=== PATIENT | male | born 1990 | race Caucasian/White ===

== ENCOUNTER → 2023-04-18 13:55 | Outpatient (CLI) | payer BC, SELFPAY ==
[2023-04-18 18:29] LABS: Basophils % 0.2 % (0.1-2.0); Eosinophils # 0.1 K/mm3 (0.0-0.4); Hematocrit 49.7 % (42.0-52.0); Hemoglobin 16.8 g/dL (14.1-18.0); Lymphocytes # 1.4 K/mm3 (0.7-4.5); Lymphocytes % 19.7 % (10-50); Mean Corpuscular HGB Conc 33.8 g/dL (31.8-35.4); Mean Corpuscular Hemoglobin 29.5 pg (27.0-31.2); Mean Corpuscular Volume 87.3 fl (80-94); Mean Platelet Volume 8.3 fl (7.4-10.4); Monocytes # 0.5 K/mm3 (0.1-1.0); Monocytes % 7.1 % (1.7-9.3); Neutrophils # 5.1 K/mm3 (1.8-7.8); Neutrophils % 71.1 % (37.0-80.0); Platelet Count 199 K/mm3 (142-424); Red Blood Count 5.69 M/mm3 (4.60-6.20); Red Cell Distribution Width 13.1 % (11.5-17.5); White Blood Count 7.2 K/mm3 (4.8-10.8)
[2023-04-18 18:57] LABS: Alanine Aminotransferase 31 U/L (12-78); Albumin Level 4.6 g/dl (3.5-5.0); Albumin/Globulin Ratio 1.5 (1.1-1.8); Alkaline Phosphatase 73 U/L (38-126); Anion Gap 12.3 mEq/L (5-15); Aspartate Amino Transferase 28 U/L (17-59); Blood Urea Nitrogen 13 mg/dl (9-20); Calcium 9.6 mg/dl (8.4-10.2); Carbon Dioxide 27 mmol/L (22.0-30.0); Chloride 106 mmol/L (98-107); Chol/HDL Ratio 7.4 (1-3.5); Cholesterol 177 mg/dl (140-200); Estimated Glomerular Filt Rate 98 ml/min (>60); GFR (African American) 119 ML/MIN (>60); Globulin 3.1 g/dL (1.3-3.2); Glucose 99 mg/dl (74-100); HDL Cholesterol 24 mg/dl (40-60); Potassium 4.3 mmoL/L (3.5-5.1); Sodium 141 mmol/L (136-145); Total Protein,Serum 7.7 g/dl (6.3-8.2); Triglycerides 153 mg/dl (30-150); VLDL Cholesterol 31 mg/dL (0-40)
[2023-04-18 19:08] LABS: Direct LDL Cholesterol 124.98 mg/dL (100-129)
[2023-04-18 19:11] LABS: 25-OH Vitamin D, Total 22.9 ng/mL (30-100)
[2023-04-18 19:28] LABS: Thyroid Stimulating Hormone 1.38 uIU/mL (0.465-4.68)
== END ==
PROVIDERS: PCP Nurse Practitioner Family; Visit Provider Nurse Practitioner Family
DX: E66.9 Obesity, unspecified (principal); Z68.41 Body mass index [BMI] 40.0-44.9, adult; E55.9 Vitamin D deficiency, unspecified
CPT/HCPCS: 80053; 80061; 82306; 84443; 85025

== ENCOUNTER → 2023-05-03 10:31 | Outpatient (CLI) | payer BC, SELFPAY | PROVIDERS: PCP Nurse Practitioner Family; Visit Provider Nurse Practitioner Family | DX: G47.33 Obstructive sleep apnea (adult) (pediatric) (principal); R06.83 Snoring | CPT/HCPCS: G0399 ==

== ENCOUNTER 2023-12-05 21:52 | Outpatient (CLI) | payer BC, SELFPAY ==
[2023-12-05 17:57] LABS: Coronavirus 19, PCR Not Detected (NotDetected); Influenza A, PCR Not Detected (NotDetected); Influenza B, PCR Not Detected (NotDetected)
== END 2023-12-05 23:59 ==
LOC: LAB.DROPOF 21:53
PROVIDERS: PCP Family Medicine; Visit Provider Family Medicine
DX: R55 Syncope and collapse (principal); F41.9 Anxiety disorder, unspecified; F41.0 Panic disorder [episodic paroxysmal anxiety]
CPT/HCPCS: 87636

== ENCOUNTER 2024-09-28 03:46 | Emergency (ER) | payer BC, SELFPAY ==
[2024-09-28 03:46] VITALS: BP 157/110; PULSE 84; RESP 20; TEMP 36.9; O2SAT 97; BMI 41.0
--- NOTE | 2024-09-28 03:56 | XR_ITS ---
PROCEDURE INFORMATION: Exam: XR Chest Exam date and time: 09/28/2024 4:15 AM Age: 33 years old Clinical indication: Pain; Left-sided; Additional info: L chest discomfort TECHNIQUE: Imaging protocol: Radiologic exam of the chest. Views: 2 views. COMPARISON: No relevant prior studies available. FINDINGS: Lungs: Unremarkable. No consolidation. Pleural spaces: Unremarkable. No pleural effusion. No pneumothorax. Heart/Mediastinum: Unremarkable. No cardiomegaly. Bones/joints: Unremarkable. IMPRESSION: No acute findings.
[2024-09-28 04:04] LABS: Basophils % 0.5 % (0.1-2.0); Eosinophils # 0.2 K/mm3 (0.0-0.4); Hematocrit 48.5 % (42.0-52.0); Lymphocytes # 1.6 K/mm3 (0.7-4.5); Lymphocytes % 20.3 % (10-50); Mean Corpuscular HGB Conc 35.1 g/dL (31.8-35.4); Mean Corpuscular Hemoglobin 29.2 pg (27.0-31.2); Mean Corpuscular Volume 83.3 fl (80-94); Mean Platelet Volume 9.9 fl (7.4-10.4); Monocytes # 0.5 K/mm3 (0.1-1.0); Monocytes % 6.2 % (1.7-9.3); Neutrophils # 5.6 K/mm3 (1.8-7.8); Neutrophils % 70.7 % (37.0-80.0); Platelet Count 226 K/mm3 (142-424); Red Blood Count 5.82 M/mm3 (4.60-6.20); Red Cell Distribution Width 11.9 % (11.5-17.5); White Blood Count 7.9 K/mm3 (4.8-10.8)
--- NOTE | 2024-09-28 04:09 | ECG_ITS ---
APPROVED REPORT Exam: Resting ECG HR:72 bpm ECG Measurements Heart Rate 72 AXES RI 146 P 24 QRSd 85 QRS 3 QT 377 T 29 QTc 401 Conclusion SINUS RHYTHM NORMAL ECG Electronically signed by : HAY VERDUZCO, 09/28/2024 07:41:35
[2024-09-28] MEDS: ONDANSETRON 4MG/2ML VIAL 4 MG IV (04:11)
[2024-09-28] MEDS: ASPIRIN 81MG CHEWABLE TABLET 324 MG PO (04:11)
[2024-09-28 04:12] LABS: Chloride 103 mmol/L (98-107)
[2024-09-28 04:13] LABS: Albumin Level 4.6 g/dl (3.5-5.0); Potassium 4.4 mmoL/L (3.5-5.1); Sodium 142 mmol/L (136-145)
[2024-09-28 04:16] LABS: Alanine Aminotransferase 37 U/L (12-78); Albumin/Globulin Ratio 1.5 (1.1-1.8); Alkaline Phosphatase 56 U/L (38-126); Anion Gap 15.4 mEq/L (5-15); Aspartate Amino Transferase 36 U/L (17-59); Bilirubin,Total 0.5 mg/dl (0.2-1.3); Blood Urea Nitrogen 16 mg/dl (9-20); Carbon Dioxide 28 mmol/L (22.0-30.0); Creatinine Clearance Estimated 204 mL/min (50-200); Estimated Glomerular Filt Rate 98 ml/min (>60); GFR (African American) 118 ML/MIN (>60); Total Protein,Serum 7.6 g/dl (6.3-8.2)
[2024-09-28 04:17] LABS: Calcium 9.5 mg/dl (8.4-10.2); Glucose 96 mg/dl (74-100)
[2024-09-28 04:31] LABS: Troponin I < 0.01 ng/ml (0.00-0.034)
[2024-09-28 04:57] VITALS: PULSE 75
[2024-09-28 05:12] LABS: HIV Combo NEGATIVE (Negative)
[2024-09-28 05:20] VITALS: BP 139/103; PULSE 82; RESP 18; TEMP 36.6; O2SAT 95
--- NOTE | 2024-09-28 05:22 | HMH.EDCP ---
Discharge Plan Disposition Patient Disposition: Home, Self-Care Condition: Good Prescriptions Prescriptions: New amoxicillin-pot clavulanate 875-125 mg tablet 1 tab PO BID Qty: 14 0RF ondansetron 4 mg tablet,disintegrating 4 mg PO Q6H PRN (Reason: nausea and vomiting) Qty: 7 0RF No Action melatonin 5 mg capsule See Rx Instructions PO .every night Rx Instructions: 5 mg orally EVERY NIGHT; Referrals Follow up/Referrals: Caro Landa APRN [Primary Care Provider] - See instructions Activity Restrictions/Add. Instructions Additional Instructions/Restrictions: You were evaluated in the ER and are appropriate for discharge at this time. Take the prescribed antibiotics as directed, do not skip doses, do not stop taking them early. Take the prescribed ondansetron if needed for nausea. Drink plenty fluids. Follow-up with a dentist for your dental pain, follow-up with your primary care doctor for reevaluation. Return to the ER with new, worsening, or otherwise concerning symptoms. Follow-up with the dental clinic Saturday through Saturday 7:30 AM to 10:30 AM They will be open after October 02 [place], [place] Clinical Impressions Clinical Impression: Chest pain, Nausea, Pain, dental Print Language Print Language: Icelandic Discharge ED Provider: Jey Alexandre General Chief Complaint: Chest Pain Stated Complaint: tooth pain, numbness in left arm, vomiting Time Seen by Provider: 09/28/24 03:47 Mode of Arrival: Ambulatory Source of Information: Patient Limitations: No Limitations Description of Symptoms (Recalled from ER Triage Doc. by RN): PT C/O KARIE DENTAL PAIN AND L SIDED CHEST DISCOMFORT STARTING YESTERDAY AROUND 3 AM PER PT. REPORTS PAIN RADIATES DOWN L ARM, + NV X1 YESTERDAY. DENIES FEVER/SOA History of Present Illness HPI narrative: 33-year-old male with a history of anxiety presents to the ER with complaints of left upper dental pain for multiple days unable to get into a dentist, left-sided chest discomfort that he does not describe as pain or pressure, this discomfort reportedly also goes down the left arm and he describes it as the sensation of the snow static on TV . He does not have any personal cardiac history. He states his chest/arm symptoms started yesterday around 3 AM, Over 24 hours ago. He does report 1 episode of nonbloody, nonbilious emesis yesterday and has mild nausea at this time but is not having any abdominal pain and has been tolerating oral intake. He denies fever, difficulty breathing, weakness, dizziness, headache, or other associated symptoms. Related Data Home Medications ?Medication ?Instructions ?Recorded ?Confirmed melatonin 5 mg capsule See Rx Instructions PO .every night 05/21/24 06/09/24 Previous Rx's ?Medication ?Instructions ?Recorded amoxicillin 875 mg-potassium 1 tab PO BID #14 tabs 09/28/24 clavulanate 125 mg tablet ondansetron 4 mg disintegrating 4 mg PO Q6H PRN nausea and 09/28/24 tablet vomiting #7 tabs Allergies Allergy/AdvReac Type Severity Reaction Status Date / Time No Known Allergies Allergy Verified 06/09/24 12:43 [facility] Disclaimer: The information contained in this section may have been updated after the patient was seen, as this information can be updated by other users. Medical History Anxiety VINCENT (obstructive sleep apnea) Moderate to severe VINCENT with hypoxemia, new CPAP set up Asthma Surgical History No significant past surgical history Family History Other Cancer Diabetes Hypertension Stroke Thyroid disorder Social History Smoking Status: Never smoker alcohol intake: current alcohol intake frequency: other substance use type: denies use current occupational status: employed Travel in the last 8 weeks: None household members: friend(s) housing: house lives independently: Yes marital status: single education level: high school service: No Have you lived/traveled outside US in past 30 days?: No Contact w/someone who lives/traveled outside US past 30 days?: No Exposure to someone with infectious disease in past 14 days?: No Do you have a fever (greater than 100.4 F or 38 C)?: No Have you tested positive for COVID-19: No Exposed to someone with COVID-19 in past 14 days?: No Do you have a sore throat?: No Do you have a cough?: No Do you have any weakness?: No Do you have any diarrhea?: No Are you experiencing any unusual bleeding?: No Do you have any muscle aches/pain?: No Do you have any abdominal pain?: No Are you experiencing loss of taste or smell?: No Other Medical History Have you received the Pneumonia Vaccine: No ROS Obtained: Yes Systems reviewed as appropriate & no additional complaints except as documented Per HPI Physical Exam General General appearance: alert and in no apparent distress Head Head exam: atraumatic and normocephalic Eye Eye exam: Present PERRL and EOMI ENT ENT exam: Present mucous membranes moist Expanded ENT Exam Teeth exam: Present fractured tooth # (16), dental tenderness # (16) and other (Very small fracture of tooth #16, mild dental tenderness of the root area of that tooth but there is no fluctuance or swelling, mild gingival erythema present) Neck Neck exam: Present normal inspection and full ROM Chest Chest inspection: Present symmetric chest wall rise; Absent tenderness Respiratory Respiratory exam: Present normal lung sounds bilaterally; Absent respiratory distress, wheezes or stridor Cardiovascular Cardiovascular exam: Present regular rate and normal rhythm Abdominal Exam Abdominal exam: Present soft; Absent distention, tenderness, guarding or rebound Extremities Exam Extremities exam: Present full ROM; Absent edema Neurological Exam Neurological exam: Present alert and oriented X3; Absent motor sensory deficit Psychiatric Psychiatric exam: Present normal affect and normal mood Skin Skin exam: Present warm and dry HEART Score HEART Score HEART Score assessment performed?: Yes History (anamnesis): Slightly suspicious ECG: Normal Age: <45 years Risk factors: 1-2 risk factors Troponin: </= normal limit HEART Score: 1 Critical Care Critical Care Time Critical Care Time: No Medical Decision Making Medical Records Medical records reviewed: Yes I reviewed the patient's medical records. MR Comment: Patient has previously been evaluated with behavioral health for anxiety. Most recently January 2024. He was thought to have attention and concentration deficits. Vaibhav Inquiry Pt receiving controlled substance: No Vital Signs Vital Signs: 09/28/24 03:46 09/28/24 04:57 09/28/24 05:20 Temperature 98.5 F 97.9 F Temperature Source Oral Tympanic Pulse Rate 75 82 Pulse Rate [Apical] 84 Respiratory Rate 20 18 Blood Pressure 139/103 H Blood Pressure [Right Arm] 157/110 H Blood Pressure Mean [Right Arm] 125 02 Sat by Pulse Oximetry 97 Oxygen Delivery Method Room Air Room Air Lab Data Labs: Lab Results 09/28/24 04:00: WBC 7.9, RBC 5.82, Hgb 17.0, Hct 48.5, MCV 83.3, MCH 29.2, MCHC 35.1, RDW 11.9, Plt Count 226, MPV 9.9, Neut % (Auto) 70.7, Lymph % (Auto) 20.3, [place] % (Auto) 6.2, Eos % (Auto) 2.0, Baso % (Auto) 0.5, Neut # (Auto) 5.6, Lymph # (Auto) 1.6, [place] # (Auto) 0.5, Eos # (Auto) 0.2, Baso # (Auto) 0.0, Sodium 142, Potassium 4.4, Chloride 103, Carbon Dioxide 28, Anion Gap 15.4 H, BUN 16, Creatinine 0.90, Estimated Creat Clear 204, Estimated GFR 98, Est GFR ( Amer) 118, Glucose 96, Calcium 9.5, Total Bilirubin 0.5, AST 36, ALT 37, Alkaline Phosphatase 56, Troponin I < 0.01, Total Protein 7.6, Albumin 4.6, Globulin 3.0, Albumin/Globulin Ratio 1.5, HIV Ag/Ab Combo Qual Negative 09/28/24 04:00 09/28/24 04:00 Response Orders (Tests/Meds): ED MEDICATIONS Discontinued Medications Generic Name Dose Route Start Last Admin Trade Name Freq PRN Reason Stop Dose Admin Aspirin 324 mg 09/28/24 03:56 09/28/24 04:11 Aspirin 81mg Chewable Tablet PO 09/28/24 03:57 324 mg ONCE ONE Administration Ondansetron HCl 4 mg 09/28/24 03:57 09/28/24 04:11 Ondansetron 4mg/2ml Vial IV 09/28/24 03:58 4 mg ONCE ONE Administration ORDERS Category Date Time Status XR chest 2V Stat Exams 09/28/24 03:56 Taken Complete Blood Count Auto Diff Stat Lab 09/28/24 04:00 Completed Comprehensive Metabolic Panel Stat Lab 09/28/24 04:00 Completed HIV Combo Routine Lab 09/28/24 04:00 Completed Hep C Ab with Reflex to RNA Stat Lab 09/28/24 04:00 Received Troponin I Q3H Lab 09/28/24 07:00 Ordered Troponin I Stat Lab 09/28/24 04:00 Completed MDM Narrative Medical Decision Narrative: In summary, this 33-year-old male with history of anxiety presents to the emergency department today with left chest discomfort radiating into the left arm as well as dental pain, nausea. On initial evaluation patient is hemodynamically stable, afebrile, GCS 15, no neurologic deficits, cardiopulmonary exam is benign, chest discomfort is not reproducible on exam, he is neurologically intact, abdominal exam benign, dental exam with small fracture of tooth 16 and tenderness of this tooth with mild gingival erythema but no fluctuance or swelling, no findings of abscess. Differential diagnosis includes but is not limited to ACS, esophageal spasm, pneumothorax, viral syndrome, I considered PE but patient is PERC negative, dental fracture, dental infection, dental abscess, I considered Deepali's however patient has maxillary pain not mandibular and no findings of sublingual or submandibular swelling or woodiness. Based on these concerns, I ordered basic serum labs, cardiac workup. His dental pain is controlled at this time and he is not requesting pain medication. ECG personally interpreted demonstrates normal sinus rhythm, rate 72, normal axis, normal FL and QTc, no STEMI, normal ECG. Patient received ondansetron, aspirin for treatment. Labs personally reviewed demonstrate normal CBC, CMP nonactionable, undetectably low troponin, I do not believe serial troponins are indicated at this time given the duration of patient's symptoms. Patient has a nonacute abdomen and nausea symptoms have resolved with ondansetron. I do not believe he requires any abdominal imaging. XR personally interpreted demonstrates no acute intrathoracic process, see radiology read for final interpretation.. On reassessment patient is stable, resting comfortably, asymptomatic, tolerating oral intake. On further discussion he believes his symptoms in the left chest and are more likely related to anxiety. He states he has had panic attacks with similar symptoms in the past. Patient has mild findings of dental infection so I prescribed Augmentin since he will not be able to get into a dentist for multiple days at least with the holidays. I also prescribed ondansetron for outpatient management. I gave him information about the dental clinic. Patient was given instructions on symptomatic management, follow up instructions, and return precautions for the emergency department. Patient indicated understanding and was discharged in stable condition.
[2024-09-29 05:33] LABS: HCV Ab Non Reactive (Non Reactive)
== END 2024-09-28 05:21 | disposition home or self-care (01) ==
PROVIDERS: Emergency Provider Emergency Medicine; PCP Family Medicine
DX: K08.89 Other specified disorders of teeth and supporting structures (principal); R07.9 Chest pain, unspecified; R20.2 Paresthesia of skin; R11.2 Nausea with vomiting, unspecified
CPT/HCPCS: 71046; 80053; 84484; 85025; 86803; 87389; 93005; 96374; 99284; J2405

== ENCOUNTER 2025-01-14 18:28 | Outpatient (CLI) | payer BC, SELFPAY ==
--- NOTE | 2025-01-14 18:35 | XR_ITS ---
PROCEDURE INFORMATION: Exam: XR Right Knee Exam date and time: 01/14/2025 6:26 PM Age: 34 years old Clinical indication: Other: Twisted knee a couple days ago having pain w TECHNIQUE: Imaging protocol: Radiologic exam of the right knee. Views: 3 views. COMPARISON: No relevant prior studies available. FINDINGS: Bones/joints: Osseous alignment is normal. No acute fracture. No significant arthritic changes or joint fluid. Soft tissues: Normal. IMPRESSION: Negative right knee
== END 2025-01-14 23:59 | disposition home or self-care (01) ==
LOC: RAD 18:30
PROVIDERS: Visit Provider Nurse Practitioner
DX: M25.561 Pain in right knee (principal)
CPT/HCPCS: 73562

== ENCOUNTER 2025-05-26 18:09 | Emergency (ER) | payer BC, SELFPAY ==
--- OUTSIDE RECORDS SUMMARY | 2025-05-25 20:00 | XMS_ITS | Encounter Summary ---
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 Role Phone Unavailable Primary Care Provider Unavailabl e Reason for Visit * Reason Comments Care Coordination Encounter Details Date Type Department Care Team (Latest Contact Info) Description 05/25/2025 8:00 PM EDT Clinical Support CARINA Descanso [address] [place] [address] Nadia Gary PA [address] [place] [address] Chest pain, unspecified type (Primary Dx); Pain radiating to left shoulder Social History Tobacco Use Types Packs/Day Years Used Date Smoking Tobacco: Never Smokeless Tobacco: Never Intimate Partner Violence Answer Date R ecorded Insults You Not on file 01/14/2021 Threatens You Not on file 01/14/2021 Screams at You Not on file 01/14/2021 Physically Hurt Not on file 01/14/2021 Intimate Partner Violence Score Not on file 01/14/2021 Depression Answer Date Recorded PHQ Total Score 0 01/18/2025 Stress Answer Date Recorded Stress in your Life Not on file 08/05/2024 Dealing with Stress 3 08/05/2024 Sex and Gender Information Value Date Recorded Sex Assigned at Not on file 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 F/u PCP. To the ER if concerns. documented in this encounter Progress Notes * GABRIELLA Block - 05/25/2025 8:00 PM EDT Mikayla England is a 34 y.o. male. WD ID: [id number] Employer: [employer] Date of Hire: 11/08/23 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 Onset: acute Symptoms: LUQ/epigastic pain, shoulder pain Transported TM back to [place] [address] via ez go without stretcher. Notes: on EMS arrival to scene TM is seated at line side, alert and oriented x4 and bracing left chest/shoulder with right hand. TM agreeable to transport to [place] [address] for further eval. TM denies any cardiac history. 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 TM denies soreness is not caused from work. TM also reports experiencing what he believes is acid reflux, stating that he ate peppered beef jerky and two Dr Peppers before work. TM reports gastric symptoms seemed to improve until his shoulder started hurting more after picking up the part. That is when TM notified GL of symptoms. EKG obtained which showed NSR. Tums provided. Triage nurse: TEDDY RN This was an emergency call with a disruption in patient care and scheduled clinic appointments. History Reviewed: Tobacco Allergies Meds Problems Med Hx Surg Hx See CC above TM is here for Emergency Evaluation after tones dropped for CP and left arm pain. TM states CP started yesterday, worse today. No hx of CAD. No injury or trauma. He states he may have hurt it at the gym and notes doing some martial arts like activity with a stick. He also says he may have done something with lifting a radiator. He does not know if it could be work related. Discussed REBEKAH if he decides to file for WC Claim. TM states he had some bad jerky this morning and that his symptoms might be GI related. He has some GERD. No diaphoresis. +SOA. No palpitation. Not LH/Dizzy. No hx of DM anddeclines FSBS. Nausea w/o emesis and no diarrhea. TM declines ALS/ER for further evaluation. Symptoms improved a bit after tums. TM also notes stress recently; see my last ER note for CP. Review of Systems Constitutional: Negative for diaphoresis. Respiratory: Positive for shortness of breath. Cardiovascular: Positive for chest pain. Gastrointestinal: Positive for nausea. Negative for diarrhea and vomiting. Musculoskeletal: Positive for arthralgias. Neurological: Negative for dizziness and light-headedness. PHQ-9 Total Score: 0 (01/18/2025 6:06 PM) Objective Vitals: 05/25/25 2136 BP: 132/83 Pulse: 78 Temp: 97.9 ??F SpO2: 97% There were no vitals filed for this visit. Physical Exam Vitals and nursing note reviewed. Constitutional: General: He is not in acute distress. Appearance: He is well-developed. He is obese. He is not ill-appearing or diaphoretic. Cardiovascular: Rate and Rhythm: Normal rate and regular rhythm. Pulses: Normal pulses. Heart sounds: Normal heart sounds. Pulmonary: Effort: Pulmonary effort is normal. No respiratory distress. Breath sounds: Normal breath sounds. No wheezing. Chest: Chest wall: Tenderness (mild, not reproducing symptoms) present. Abdominal: General: Bowel sounds are normal. Palpations: Abdomen is soft. Tenderness: There is no abdominal tenderness. Musculoskeletal: General: No swelling. Skin: General: Skin is warm and dry. Capillary Refill: Capillary refill takes less than 2 seconds. Neurological: General: No focal deficit present. Mental Status: He is alert. Cranial Nerves: No cranial nerve deficit. Sensory: No sensory deficit. Motor: No abnormal muscle tone. Psychiatric: Thought Content: Thought content normal. Assessment: ICD-10-CM ICD-9-CM 1. Chest pain, unspecified type R07.9 786.50 ECG 12 lead 2. Pain radiating to left shoulder M25.512 719.41 Orders Placed This Encounter Procedures ECG 12 lead Patient Instructions RTW Regular duty. F/u PCP. To the ER if concerns. documented in this encounter Plan of Treatment Not on file documented as of this encounter Procedures Procedure Name Priority Date/Time Associated Diagnosis Comments ECG 12-LEAD Routine 05/25/2025 9:16 PM EDT Chest pain, unspecified type documented in this encounter Results * ECG 12 lead (05/25/2025 9:16 PM EDT) Impressions Nadia Gary PA - 05/25/2025 9:16 PM EDT NSR, HR 72 Nadia QUIROZ ECG ORDERABLES Final Result documented in this encounter Visit Diagnoses Diagnosis Chest pain, unspecified type- Primary Pain radiating to left shoulder documented in this encounter
[2025-05-26 18:15] VITALS: BP 125/80; PULSE 77; RESP 18; TEMP 36.8; O2SAT 100; BMI 38.5
--- NOTE | 2025-05-26 18:22 | ED_ITS ---
<Statement entered by Lenin Pepper DO - 05/27/25 08:59> I was consulted by the JEREMIAH, and we discussed the complexity of problems being addressed. I approved the treatment and management plan for this patient's care in the emergency department, thus performing a substantive portion of the medical decision making. Lenin Pepper DO Discharge Plan Disposition Patient Disposition: Home, Self-Care Condition: Good Referrals Follow up/Referrals: Caro Landa APRN [Primary Care Provider, Family Practice] - See instructions Activity Restrictions/Add. Instructions Additional Instructions/Restrictions: You were evaluated on an emergency basis. It is very important that you follow- up with your primary care provider and any specialist who we discussed within the next 2 days in order to better assess your health more comprehensively. For example, incidental findings on imaging or laboratory results that were performed today may be discovered, which do not require immediate medical care, but may impact your health in the future. If your symptoms worsen or persist, please return to the emergency department immediately for reassessment. Take all medications as prescribed. In queue for allowing me to participate in your health care, and I hope you feel better soon. Clinical Impressions Clinical Impression: Chest pain due to GERD, without esophagitis Instructions Patient Instructions: DI for Gastroesophageal Reflux Disease (GERD) Print Language Print Language: Monegasque Discharge ED Provider: Lenin Pepper General Adult HPI General Chief complaint: PAIN Stated complaint: Left arm pain,B/P problems,acid reflux Time Seen by Provider: 05/26/25 18:22 Mode of Arrival: Ambulatory Source of Information: Patient Description of Symptoms (Recalled from ER Triage Doc. by RN): patient presents to the ED for left arm pain, epigastric pain, and left sided chest pain. patient mentioned he has also been doing alot of martial arts and could be pulled muscles. lainey stated his place of employement got an EKG which was normal at work last night. History of Present Illness HPI narrative: 34-year-old male presents emergency department with complaints of chest pain, left arm pain, and epigastric pain since last night. He reports that he has a history of GERD. He also states that he recently started doing martial arts and is unsure if this is related to musculoskeletal strain. He denies nausea, vomiting, diarrhea, fevers. Related Data Allergies Allergy/AdvReac Type Severity Reaction Status Date / Time No Known Allergies Allergy Verified 02/01/25 14:56 [facility] Disclaimer: The information contained in this section may have been updated after the patient was seen, as this information can be updated by other users. Medical History Knee pain Anxiety VINCENT (obstructive sleep apnea) Moderate to severe VINCENT with hypoxemia, new CPAP set up Asthma Surgical History No significant past surgical history Family History Other Cancer Diabetes Hypertension Stroke Thyroid disorder Social History Smoking Status: Never smoker alcohol intake: current alcohol intake frequency: other substance use type: denies use current occupational status: employed Travel in the last 8 weeks?: None household members: friend(s) housing: house lives independently: Yes marital status: single education level: high school service: No Have you lived/traveled outside [place] in past 30 days?: No Contact w/someone who lives/traveled outside US past 30 days?: No Exposure to someone with infectious disease in past 14 days?: No Do you have a fever (greater than 100.4 F or 38 C)?: No Have you tested positive for COVID-19?: No Exposed to someone with COVID-19 in past 14 days?: No Do you have a sore throat?: No Do you have a cough?: No Do you have any weakness?: No Do you have any diarrhea?: No Are you experiencing any unusual bleeding?: No Do you have any muscle aches/pain?: No Do you have any abdominal pain?: No Are you experiencing loss of taste or smell?: No Other Medical History Have you received the Pneumonia Vaccine: No ROS Obtained: Yes All systems reviewed & no additional complaints except as documented Cardiovascular Cardiovascular: Reports chest pain Gastrointestinal Gastrointestingal: Reports reflux Musculoskeletal Musculoskeletal: Reports myalgias Physical Exam Narrative Physical exam: General: Awake, aware, in no acute distress HEENT: Normocephalic, no evidence of trauma CV: RRR, no murmurs, rubs, or gallops. 2+ pulses in all extremity, no edema noted Pulm: CTA bilaterally with no rhonchi, rales, wheezes ABD: Nontender, no swelling, guarding, or rebound tenderness Psych, appropriate mood and affect General General appearance: alert Respiratory Respiratory exam: Present normal lung sounds bilaterally Cardiovascular Cardiovascular exam: Present regular rate Neurological Exam Neurological exam: Present alert Medical Decision Making Medical Records Screening: Per USPSTF and CDC recommendations, given the prevalence of disease in our region, it is our hospital?s policy to screen for HIV and viral Hepatitis for all patients aged 18 and over and those with ongoing risk factors. Vaibhav Inquiry Pt receiving controlled substance: No Vital Signs: 05/26/25 18:15 05/26/25 19:00 05/26/25 19:30 Temperature 98.2 F Temperature Source Temporal Artery Scan Pulse Rate 68 73 Pulse Rate [Left Radial] 77 Respiratory Rate 18 14 21 Blood Pressure 113/79 116/76 Blood Pressure [Left Arm] 125/80 Blood Pressure Mean [Left Arm] 95 Blood Pressure Source [Left Arm] Automatic Cuff Blood Pressure Position [Left Arm] Sitting 02 Sat by Pulse Oximetry 100 94 L 93 L Oxygen Delivery Method Room Air Room Air Room Air Lab Data Lab Results 05/26/25 18:28: WBC 5.7, RBC 5.37, Hgb 16.0, Hct 45.5, MCV 84.7, MCH 29.8, MCHC 35.2, RDW 12.1, Plt Count 221, MPV 10.0, Neut % (Auto) 72.1, Lymph % (Auto) 18.4, Haywood % (Auto) 6.7, Eos % (Auto) 2.1, Baso % (Auto) 0.5, Neut # (Auto) 4.1, Lymph # (Auto) 1.1, Haywood # (Auto) 0.4, Eos # (Auto) 0.1, Baso # (Auto) 0.0, Sodium 140, Potassium 4.3, Chloride 107, Carbon Dioxide 27, Anion Gap 10.3, BUN 14, Creatinine 0.80, Estimated Creat Clear 213, Estimated GFR 111, Est GFR ( Amer) 135, Glucose 87, Calcium 9.5, Magnesium 1.8, Total Bilirubin 0.7, AST 26, ALT 25, Alkaline Phosphatase 51, Troponin I < 0.01, Total Protein 6.9, Albumin 4.3, Globulin 2.6, Albumin/Globulin Ratio 1.7, Lipase 99, HIV Ag/Ab Combo Qual Negative 05/26/25 18:28 05/26/25 18:28 Orders (Tests/Meds): ED MEDICATIONS Discontinued Medications Generic Name Dose Route Start Last Admin Trade Name Gigi PRN Reason Stop Dose Admin Belladonna Alkaloids 60 ml 05/26/25 18:44 05/26/25 18:53 Belladonna Alkaloids 60 Ml Ml PO 05/26/25 18:45 60 ml ONCE ONE Administration ORDERS Category Date Time Status Chest XR -- portable [XR chest portable] Stat Exams 05/26/25 18:26 Completed CBC w/Auto Diff [Complete Blood Count Auto Diff] Stat Lab 05/26/25 18:28 Completed CMP [Comprehensive Metabolic Panel] Stat Lab 05/26/25 18:28 Completed HIV Combo Stat Lab 05/26/25 18:28 Completed Hepatitis C Ab Qual. W/ RFX Stat Lab 05/26/25 18:28 Received Lipase Stat Lab 05/26/25 18:28 Completed Magnesium Stat Lab 05/26/25 18:28 Completed Trop I [Troponin I] Stat Lab 05/26/25 18:28 Completed Troponin I Q3H Lab 05/26/25 21:30 Ordered Troponin I Q3H Lab 05/27/25 00:30 Ordered Medical Decision Narrative: Initial impression of presenting illness: 34-year-old male presents the emergency department complaints of chest pain, left arm pain, gastric pain since last night. He reports that he has a history of GERD. He also states that he has started martial arts and unsure if the symptoms are related to musculoskeletal strain. Differential diagnosis includes but is not limited to: ACS, pleurisy, costochondritis, musculoskeletal strain, GERD, gastritis Patient arrives hemodynamically stable, afebrile, without respiratory distress with vital signs interpreted by myself. Initial physical exam unremarkable Initial diagnostic plan: ACS workup, GI cocktail Results from initial plan were reviewed and interpreted by myself, pertinent positives include: Laboratory studies including EKG and chest x-ray were nonactionable. EKG is a normal sinus rhythm with a rate of 71. No ST changes noted. Patient's symptoms have been going on since last night we did not follow-up with a repeat troponin. Interventions in the ED: Patient was given GI cocktail for symptom relief. Patient was made aware of the results and the findings, upon reevaluation patient has remained stable throughout stay, symptoms have improved. Upon reevaluation patient states he is feeling better after receiving a GI cocktail. Eitel signs of states stable and he is resting comfortably in bed with no signs of acute distress. Disposition: Reviewed findings today's workup with patient informed no acute abnormalities were noted. Lysed him that symptoms could be related to musculoskeletal strain as well as GERD. For patient I can give him a prescription for omeprazole to try for couple weeks to see if he notices an improvement in his GERD symptoms. He states he would just pick the medication up [id number]. I recommended that he follow-up with his primary care provider for further management of GERD. Instructed him to return to the emergency department any new or worsening symptoms. Patient made aware of findings and had a detailed discussion with symptomatic care and return precautions, patient voiced understanding. Critical Care Critical Care Time Critical Care Time: No
--- NOTE | 2025-05-26 18:26 | XR_ITS ---
PROCEDURE INFORMATION: Exam: XR Chest Exam date and time: 05/26/2025 6:43 PM Age: 34 years old Clinical indication: Pain; Chest pressure; Additional info: Cp TECHNIQUE: Imaging protocol: Radiologic exam of the chest. Views: 1 view. COMPARISON: CR Chest 09/28/2024 4:15 AM FINDINGS: Airway: The trachea is midline. Lungs: No focal consolidation. Pleural spaces: No significant pleural effusion. No pneumothorax. Heart/Mediastinum: Stable heart size. Bones/joints: Stable bones. Soft tissues: Soft tissues are unremarkable as visualized. IMPRESSION: No acute findings.
--- NOTE | 2025-05-26 18:27 | ECG_ITS ---
APPROVED REPORT Exam: Resting ECG HR:71 bpm ECG Measurements Heart Rate 71 AXES OK 156 P 43 QRSd 82 QRS 72 QT 347 T 18 QTc 369 Conclusion SINUS RHYTHM LOW QRS VOLTAGE IN PRECORDIAL LEADS [QRS DEFLECTION < 1.0 mV IN CHEST LEADS] BORDERLINE ECG UNCONFIRMED REPORT Electronically signed by : JACY TERRAZAS, 05/27/2025 06:56:44
--- OUTSIDE RECORDS SUMMARY | 2025-05-26 18:28 | XMS_ITS | Clinical Summary ---
Author Organization [facility] Address [address] [place] [address] Care Team Providers Care Social Human Services Assistants Name Role Phone Unavailable Primary Care Provider Unavailabl e Social History Tobacco Use Types Packs/Day Years Used Date Smoking Tobacco: Never Assessed Sex and Gender Information Value Date Recorded Sex Assigned at Not on file Legal Sex Male 7:52 PM EDT Gender Identity Not on file Sexual Orientation Not on file Plan of Treatment Not on file
--- OUTSIDE RECORDS SUMMARY | 2025-05-26 18:28 | XMS_ITS | Clinical Summary ---
Author Organization [facility] Address [address] [place] [id number] Phone [email or web address] Care Team Providers Care Vocal Artist Name Role Phone Unavailable Primary Care Provider Unavailabl e Allergies No known active allergies Medications No known medications Active Problems Problem Noted Date Diagnosed Date Return to work evaluation 12/06/2023 Encounters Date Type Department Care Team Description 05/25/2025 8:00 PM EDT Clinical Support [facility] [place] [facility] [address] [place] [address] Nadia Gary PA Chest pain, unspecified type (Primary Dx); Pain radiating to left shoulder from Last 3 Months Social History Tobacco Use Types Packs/Day Years Used Date Smoking Tobacco: Never Smokeless Tobacco: Never Tobacco Cessation:Counseling Given: Not Answered Intimate Partner Violence Answer Date R ecorded [...] on file Legal Sex Male 1:03 PM [employer] WORK[employer] Gender Identity Not on file Sexual Orientation Not on file Last Filed Vital Signs Vital Sign Reading Time Taken Comments Blood Pressure 132/83 05/25/2025 9:36 PM EDT Pulse 78 05/25/2025 9:36 PM EDT Temperature 36.6 C (97.9 F) 05/25/2025 9:36 PM EDT Respiratory Rate 18 02/15/2025 11:36 PM EDT Oxygen Saturation 97% 05/25/2025 9:36 PM EDT Inhaled Oxygen Concentration - - Weight 121 kg (266 lb 3.2 oz) 10/16/2023 8:25 PM EST Height 172.7 cm (5' 8 ) 10/16/2023 8:25 PM EST Body Mass Index 40.48 10/16/2023 8:25 PM EST Plan of Treatment Health Maintenance Due Date Last Done Comments Dental Cleaning/Exam 1991 HIV Screening 1991 Hepatitis C Screening 1991 Asthma Spirometry 1996 Hepatitis B Immunization (2 of 3 - 3-dose series) 08/09/2003 07/12/2003 HPV Immunization (1 - Male 3 -dose series) 2006 Hep B Infection Screening - Triple Screen 2009 Pneumococcal: Ped (0 to 5 Yr s) and At-Risk Member (6 to 64 Yrs) (1 of 2 - PCV) 2010 Tetanus Diphtheria and Pertu ssis Immunization (1 - Tdap) 2010 Annual Preventive Exam 04/06/2023 04/06/2022 Covid-19 Immunization (1 - 2 -25 season) 2024 Influenza Immunization (#1) 2025 HIB Immunization Aged Out No longer e ligible based on patient's age to complete this topic Hepatitis A Immunization Aged Out No longer eligible based on patient's age to complete this topic Polio Immunization Aged Out No longer eligible based on patient's age to complete this topic Varicella Immunization Aged Out No lo nger eligible based on patient's age to complete this topic Procedures Procedure Name Priority Date/Time Associated Diagnosis Comments ECG 12-LEAD Routine 05/25/2025 9:16 PM EDT Chest pain, unspecified type from Last 3 Months Results * ECG 12 lead (05/25/2025 9:16 PM EDT) Nadia Younger PA - 05/25/2025 9:16 PM EDT NSR, HR 72 Nadia QUIROZ ECG ORDERABLES Final Result from Last 3 Months Insurance OPT OUT NO COPAY NB
--- OUTSIDE RECORDS SUMMARY | 2025-05-26 18:28 | XMS_ITS | Encounter Summary ---
Author Organization [facility] Address [address] [id number] Care Team Providers Care Cut Lace Machine Operator Name Role Phone Unavailable Primary Care Provider Unavailabl e Reason for Referral * Consultation (Routine) - Pending Review Specialty Diagnoses / Procedures Referred By Contac t Referred To Contact Psychiatry Diagnoses Attention and concentration deficit Generalized anxiety disorder Raphael Tiwari MD [address] [place] [id number] Phone: tel: fax: Referral ID Status Reason Start Date Expiration Date Visits Requested Visits Authorized [id number] Pending Review Specialty Services Required 03/18/2024 09/17/2025 1 1 Encounter Details Date Type Department Care Team (Latest Contact Info) Description 03/18/2024 Community [facility] [address] [place] [phone] Raphael Tiwari MD [address] [place] [address] Attention and concentration deficit (Primary Dx); Generalized anxiety disorder Social History Tobacco Use Types Packs/Day Years Used Date Smoking Tobacco: Never Assessed Sex and Gender Information Value Date Recorded Sex Assigned at Not on file Legal Sex Male 7:52 PM EDT Gender Identity Not on file Sexual Orientation Not on file documented as of this encounter Plan of Treatment Scheduled Referrals Name Type Priority Associated Diagnoses Orde r Schedule Ambulatory referral to Psychiatry Outpatient Referral Routine Attention and concentration deficit Generalized anxiety disorder Expected: 03/18/2024 (Approximate), Expires: 09/17/2025 documented as of this encounter Visit Diagnoses Diagnosis Attention and concentration deficit- Primary Generalized anxiety disorder documented in this encounter
[2025-05-26 18:37] LABS: Hematocrit 45.5 % (42.0-52.0); Hemoglobin 16.0 g/dL (14.1-18.0); Immature Granulocytes % 0.2 %; Mean Corpuscular HGB Conc 35.2 g/dL (31.8-35.4); Mean Corpuscular Hemoglobin 29.8 pg (27.0-31.2); Mean Corpuscular Volume 84.7 fl (80-94); Nucleated Red Blood Cells % 0 %; Platelet Count 221 K/mm3 (142-424); Red Blood Count 5.37 M/mm3 (4.60-6.20); Red Cell Distribution Width-SD 37.3 fL; White Blood Count 5.7 K/mm3 (4.8-10.8)
[2025-05-26] MEDS: BELLADONNA ALKALOIDS 60 ML ML PO (18:53)
[2025-05-26 18:54] LABS: Magnesium 1.8 mg/dl (1.6-2.3)
[2025-05-26 19:00] VITALS: BP 113/79; PULSE 68; RESP 14; O2SAT 94
[2025-05-26 19:09] LABS: Troponin I < 0.01 ng/ml (0.00-0.034)
[2025-05-26 19:20] LABS: Albumin Level 4.3 g/dl (3.5-5.0); Chloride 107 mmol/L (98-107); Potassium 4.3 mmoL/L (3.5-5.1); Sodium 140 mmol/L (136-145)
[2025-05-26 19:22] LABS: Blood Urea Nitrogen 14 mg/dl (9-20); Creatinine Clearance Estimated 213 mL/min (50-200); Creatinine,Serum 0.80 mg/dl (0.66-1.25); Estimated Glomerular Filt Rate 111 ml/min (>60); GFR (African American) 135 ML/MIN (>60)
[2025-05-26 19:23] LABS: Alanine Aminotransferase 25 U/L (12-78); Albumin/Globulin Ratio 1.7 (1.1-1.8); Alkaline Phosphatase 51 U/L (38-126); Anion Gap 10.3 mEq/L (5-15); Aspartate Amino Transferase 26 U/L (17-59); Bilirubin,Total 0.7 mg/dl (0.2-1.3); Calcium 9.5 mg/dl (8.4-10.2); Carbon Dioxide 27 mmol/L (22.0-30.0); Globulin 2.6 g/dL (1.3-3.2); Glucose 87 mg/dl (74-100); Lipase 99 U/L (23-300); Total Protein,Serum 6.9 g/dl (6.3-8.2)
[2025-05-26 19:30] VITALS: BP 116/76; PULSE 73; RESP 21; O2SAT 93
[2025-05-26 19:43] LABS: Hepatitis C Ab Qual. W/ RFX NEGATIVE (Negative)
[2025-05-26 20:06] VITALS: BP 109/67; PULSE 65; RESP 14; TEMP 36.8; O2SAT 95
== END 2025-05-26 20:16 | disposition home or self-care (01) ==
PROVIDERS: Nurse Practitioner Family; Emergency Provider Student in an Organized Health Care Education/Training Program; PCP Family Medicine
DX: R07.89 Other chest pain (principal); R10.13 Epigastric pain; K21.9 Gastro-esophageal reflux disease without esophagitis; M79.602 Pain in left arm
CPT/HCPCS: 71045; 80053; 83690; 83735; 84484; 85025; 86803; 87389; 93005; 99283; 99284